=== PATIENT | female | born 1980 | race Caucasian/White ===

== ENCOUNTER 2021-09-02 18:56 | Emergency (ER) | payer OTHER, SELFPAY ==
[2021-09-02 19:08] VITALS: BP 132/118; PULSE 85; RESP 18; TEMP 36.9; O2SAT 99
--- NOTE | 2021-09-02 19:28 | ED.LOWEXIN ---
HPI - Extremity Injury (Lower) General Chief Complaint: Extremity Injury, Lower Stated Complaint: Feet Swelling Time Seen by Provider: 09/02/21 19:28 Source: patient and RN notes reviewed Mode of arrival: ambulatory Limitations: no limitations History of Present Illness HPI Narrative: 41-year-old female presents with concern for swelling, pain, warmth, tenderness to her right foot and ankle. She reports she is starting to have pain and swelling to the right foot as well. She denies injury or trauma. She denies fever, body aches, chills, sweats. She denies rash, open skin. Patient reports history of blood clot in her shoulder, she is a heavy. She reports she has not had a primary care doctor in 2 years and has not been on her blood pressure medication for that time. MD complaint: other (Foot swelling) Related Data Allergies Allergy/AdvReac Type Severity Reaction Status Date / Time No Known Allergies Allergy Verified 09/02/21 19:31 Review of Systems Review of Systems: CONSTITUTIONAL: Denies malaise, chills, sweats, or fever. SKIN: Denies rash or itching, open skin, laceration, abrasion MUSCULOSKELETAL: Reports right foot and ankle swelling, warmth, tenderness, redness. Reports mild left foot swelling NEUROLOGIC: Denies numbness, weakness All systems reviewed & are unremarkable except as noted in HPI and below PMFSH Comments At time of signature, agree with nursing past medical, surgical, social and family history. There is no relevant family history pertinent to the presenting complaint Exam Narrative: GENERAL: Well-appearing, well-nourished, and in no acute distress. HEAD: Normocephalic, atraumatic. EYES: PERRLA, conjunctivae clear NECK: Supple. CHEST: Speaks in full sentences. No respiratory distress. HEART: Regular rate and rhythm. Normal and equal peripheral pulses. EXTREMITIES: Right ankle, foot, digits have normal strength and sensation, normal range of motion. Mild foot and ankle erythema, warmth, edema. 5/5 strength with digit and ankle flexion and extension. Normal sensation with sensitivity to light touch and pain. Generalized tenderness. No open wounds, no skin tenting, no devitalized tissue or atrophy, no trophic changes, no obvious deformity, alignment normal, nearby joints and structures intact. Distal pulses palpable and equal bilaterally, skin warm, dry, pink. Capillary refill less than 3 seconds. Mild edema without warmth, tenderness, erythema noted to the dorsal left foot, otherwise unremarkable. Capillary refill less than 3 seconds, pulses intact SKIN: Warm, dry, no rash. NEURO: Alert and oriented x3. PSYCH: Normal mood and affect Course Course Emergency Course: Discussed with patient that I cannot rule out a blood clot in the [facility]. Patient does not wish to go to the emergency room tonight. Patient understands that if the antibiotic is not improving her symptoms she should go to the emergency room. Patient is aware of diagnosis, understands and agrees to treatment plan. Anticipatory guidance given. Patient agrees to follow-up as directed and is aware of reasons to seek care at the emergency department. Portions of this record may have been created with voice recognition software Level of Care: [facility] Visit Vital Signs Vital signs: Vital Signs Temperature 98.5 F 09/02/21 19:08 Pulse Rate 85 09/02/21 19:08 Respiratory Rate 18 09/02/21 19:08 Blood Pressure 132/118 H 09/02/21 19:08 Pulse Oximetry 99 09/02/21 19:08 Temperature 98.5 F 09/02/21 19:08 Pulse Rate 85 09/02/21 19:08 Respiratory Rate 18 09/02/21 19:08 Blood Pressure 132/118 H 09/02/21 19:08 Pulse Oximetry 99 09/02/21 19:08 Reviewed. MDM - Extremity Injury (Lower) MDM Narrative Medical decision making narrative: Exam findings show no acute concerns or changes; patient is non-toxic appearing and is in no distress. Patient is appropriate for outpatient treatment and follow-up. Critical Care T
== END 2021-09-02 19:45 | disposition home or self-care (01) ==
PROVIDERS: Emergency Provider Nurse Practitioner
DX: L03.115 Cellulitis of right lower limb (principal); Z86.718 Personal history of other venous thrombosis and embolism; Z98.84 Bariatric surgery status; I10 Essential (primary) hypertension; Z91.128 Patient's intentional underdosing of medication regimen for other reason; Z89.211 Acquired absence of right upper limb below elbow
CPT/HCPCS: 99213; G0463